=== PATIENT | female | born 2000 | race Caucasian/White ===

== ENCOUNTER 2024-12-29 00:17 | Emergency (ER) | payer OTHER, SELFPAY ==
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
[2024-12-29 00:19] VITALS: BP 133/60; PULSE 103; RESP 20; TEMP 36.2; O2SAT 95; BMI 35.4
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
[2024-12-29] MEDS: Fluorescein Sodium STRIP 1 STRIP EYE-LEFT (02:15)
[2024-12-29 03:50] VITALS: BP 96/50; PULSE 84; RESP 16; TEMP 36.2; O2SAT 98
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
== END 2024-12-29 03:52 | disposition home or self-care (01) ==
PROVIDERS: Emergency Provider Emergency Medicine
DX: S00.83XA Contusion of other part of head, initial encounter (principal); Y04.0XXA Assault by unarmed brawl or fight, initial encounter; Y93.9 Activity, unspecified; Y92.9 Unspecified place or not applicable; Y99.9 Unspecified external cause status; H43.12 Vitreous hemorrhage, left eye
CPT/HCPCS: 70450; 70486; 99284; 99285

== ENCOUNTER → 2024-12-29 01:27 | Outpatient (BNV) | payer OTHER, SELFPAY | PROVIDERS: Emergency Provider Emergency Medicine; Visit Provider Radiology Diagnostic Radiology | DX: S00.93XA Contusion of unspecified part of head, initial encounter (principal); R51.9 Headache, unspecified; Y04.2XXA Assault by strike against or bumped into by another person, initial encounter | CPT/HCPCS: 70450; 70486 ==